=== PATIENT | female | born 1965 | race Caucasian/White ===

== ENCOUNTER → 2018-06-15 | Outpatient (CLI) | payer OTHER ==
--- NOTE | 2018-06-22 10:06 | MM ---
Reason for exam: screening (asymptomatic). Last mammogram was performed 2 years and 3 months ago. History: Family history of breast cancer in 3 maternal cousins. Benign stereotactic core biopsy of the left breast, February 2012. Took hormonal contraceptives for 8 years beginning at age 16. Took estrogen for 3 months. Took progesterone for 3 months. Physical Findings: A clinical breast exam by your physician is recommended on an annual basis and results should be correlated with mammographic findings. MG 3D Screening Mammo W/Cad Bilateral CC and MLO view(s) were taken. Prior study comparison: March 18, 2016, mammogram, performed at [facility]. April 24, 2015, bilateral MG screening mammo w CAD. The breast tissue is heterogeneously dense. This may lower the sensitivity of mammography. Finding: There are typically benign round, regional, linear calcifications in the upper inner quadrant of the right breast. Previous mammotome biopsy in the left breast. There is no discrete abnormality. ASSESSMENT: Benign, BI-RAD 2 RECOMMENDATION: Routine screening mammogram of both breasts in 1 year.
== END | disposition home or self-care (01) ==
LOC: RADMAMWWP 07:23
PROVIDERS: ATTEND Family Medicine
DX: Z12.31 Encounter for screening mammogram for malignant neoplasm of breast (principal)
CPT/HCPCS: 77063; 77067

== ENCOUNTER → 2018-10-11 | Outpatient (CLI) | payer OTHER ==
--- NOTE | 2018-10-11 14:18 | EST ---
EXERCISE STRESS AGE: 62 SEX: F HT: 4'11 WT: 140 PROTOCOL: Cardiolite Sebastian Study. STAGE: II DURATION OF EXERCISE: 8:26 HEART RATE REST: 68 BLOOD PRESSURE REST: 116/80 MAXIMUM HEART RATE ACHIEVED: 143 MAXIMUM BLOOD PRESSURE: 164/73 85% MPHR: 142 100% MPHR: 167 METS: 9.3 INDICATIONS: Chest pain. CLINICAL INFORMATION: Baseline rhythm is sinus mechanism, rate 68, normal axis and intervals, normal Echocardiogram. Baseline blood pressure 116/80 mmHg. Patient exercised on Sebastian protocol for 8 minutes 26 seconds reaching a peak rate of 143 beats per minute which is equal to 85% maximum predicted heart rate. Peak blood pressure 164/73 mmHg. Test was terminated due to fatigue. Therew was no chest pain. Electrocardiograph monitoring revealed no evidence of diagnostic ischemic ST deviation. Cardiolite was injected at peak exercise. CONCLUSION: 1. Average exercise tolerance with normal electrocardiographic response to exercise. 2. Nuclear images will be reported separately. MMODL / IJN: [id number] /
--- NOTE | 2018-10-11 16:44 | NM ---
EXAMINATION TYPE: NM stress cardiolite complete DATE OF EXAM: 10/11/2018 COMPARISON: NONE HISTORY: R07.9 TECHNIQUE: After the intravenous administration of 9.87 mCi Tc 99m Sestamibi - Rest images obtained 45 minutes post injection. The patient exercised using a WOODY protocol and 1 minute prior to peak exercise was injected with 25.0 mCi Tc 99m Sestamibi - Stress images obtained 10 minutes post injecti on. FINDINGS: SPECT imaging appears unremarkable. No fixed or reversible perfusion defects are evident. Gated wall motion has some mild dyskinesia of the cardiac apex at peak systole. The ejection fraction of 62 % is normal. IMPRESSION: 1. No stress-induced ischemic changes.
== END ==
LOC: RADNMMAIN 08:04
PROVIDERS: ATTEND Family Medicine
DX: R07.9 Chest pain, unspecified (principal)
CPT/HCPCS: 93017; 78452; A9500

== ENCOUNTER → 2019-07-19 | Outpatient (CLI) | payer BC ==
--- NOTE | 2019-07-19 11:16 | MM ---
Reason for exam: screening (asymptomatic). Last mammogram was performed 1 year and 1 month ago. History: Family history of breast cancer in 3 maternal cousins. Benign stereotactic core biopsy of the left breast, February 2012. Took hormonal contraceptives for 8 years beginning at age 16. Taking estrogen for 3 months. Taking progesterone for 3 months. Physical Findings: A clinical breast exam by your physician is recommended on an annual basis and results should be correlated with mammographic findings. MG 3D Screening Mammo W/Cad Bilateral CC and MLO view(s) were taken. Prior study comparison: June 15, 2018, bilateral MG 3d screening mammo w/cad. March 18, 2016, mammogram, performed at [facility]. The breast tissue is heterogeneously dense. This may lower the sensitivity of mammography. There are benign appearing regional round calcifications in the right breast. Previous mammotome biopsy in the left breast. There is no discrete abnormality. ASSESSMENT: Benign, BI-RAD 2 RECOMMENDATION: Routine screening mammogram of both breasts in 1 year.
== END | disposition home or self-care (01) ==
LOC: RADMAMWWP 07:39
PROVIDERS: ATTEND Obstetrics & Gynecology
DX: Z12.31 Encounter for screening mammogram for malignant neoplasm of breast (principal)
CPT/HCPCS: 77063; 77067

== ENCOUNTER → 2020-10-10 | Outpatient (CLI) | payer BC ==
--- NOTE | 2020-10-11 11:18 | MM ---
Reason for exam: screening (asymptomatic). Last mammogram was performed 1 year and 3 months ago. History: Patient is postmenopausal. Family history of breast cancer in 3 maternal cousins. Benign stereotactic core biopsy of the left breast, February 2012. Took hormonal contraceptives for 8 years beginning at age 16. Taking estrogen for 3 months. Taking progesterone for 3 months. Physical Findings: A clinical breast exam by your physician is recommended on an annual basis and results should be correlated with mammographic findings. MG 3D Screening Mammo W/Cad Bilateral CC and MLO view(s) were taken. Prior study comparison: July 19, 2019, bilateral MG 3d screening mammo w/cad. June 15, 2018, bilateral MG 3d screening mammo w/cad. The breast tissue is heterogeneously dense. This may lower the sensitivity of mammography. There are benign appearing round calcifications bilaterally. Previous mammotome biopsy in the left breast. There is no discrete abnormality. ASSESSMENT: Benign, BI-RAD 2 RECOMMENDATION: Routine screening mammogram of both breasts in 1 year.
== END | disposition home or self-care (01) ==
LOC: RADMAMWWP 10:44
PROVIDERS: ATTEND Family Medicine
DX: Z12.31 Encounter for screening mammogram for malignant neoplasm of breast (principal)
CPT/HCPCS: 77063; 77067

== ENCOUNTER → 2021-12-12 | Outpatient (CLI) | payer OTHER ==
--- NOTE | 2021-12-16 09:16 | MM ---
Reason for exam: screening (asymptomatic). Last mammogram was performed 1 year and 2 months ago. History: Patient is postmenopausal. Family history of breast cancer in 3 maternal cousins. Benign stereotactic core biopsy of the left breast, February 2012. Took hormonal contraceptives for 8 years beginning at age 16. Taking estrogen for 3 months. Taking progesterone for 3 months. Physical Findings: A clinical breast exam by your physician is recommended on an annual basis and results should be correlated with mammographic findings. MG 3D Screening Mammo W/Cad Bilateral CC and MLO view(s) were taken. Prior study comparison: October 10, 2020, bilateral MG 3d screening mammo w/cad. July 19, 2019, bilateral MG 3d screening mammo w/cad. The breast tissue is heterogeneously dense. This may lower the sensitivity of mammography. Previous mammotome biopsy in the left breast. No significant changes when compared with prior studies. ASSESSMENT: Benign, BI-RAD 2 RECOMMENDATION: Routine screening mammogram of both breasts in 1 year.
== END | disposition home or self-care (01) ==
LOC: RADMAMWWP 13:14
PROVIDERS: ATTEND Obstetrics & Gynecology
DX: Z12.31 Encounter for screening mammogram for malignant neoplasm of breast (principal); Z80.3 Family history of malignant neoplasm of breast; Z78.0 Asymptomatic menopausal state
CPT/HCPCS: 77063; 77067

== ENCOUNTER → 2022-08-18 | Outpatient (CLI) | payer OTHER ==
--- NOTE | 2022-08-19 10:41 | US ---
EXAMINATION TYPE: US thyroid st tissue head/neck DATE OF EXAM: 08/18/2022 COMPARISON: NONE CLINICAL HISTORY: 56-year-old female E03.9 HYPOTHYROIDISM. Hypothyroidism per order. Patient is curre ntly taking thyroid medication. TECHNIQUE: Multiple sonographic images of the thyroid gland are obtained. FINDINGS: GLAND SIZE: Right Lobe: 4.0 x 1.2 x 1.3 cm Overall Parenchyma: homogenous Left Lobe: 3.4 x 1.0 x 1.1 cm Overall Parenchyma: homogeneous Isthmus Thickness: 0.2 cm NODULES RIGHT: # of nodules measured on right: 1 1. 0.4 X 0.4 x 0.4 cm, mid medial, solid or almost completely solid, hypoechoic nodule, which is as wide as it is tall, with ill-defined margins, with echogenic focus. Prior size: no prior LEFT: # of nodules measured on left: 2 1. 0.3 X 0.3 x 0.3 cm, mid lateral, mixed cystic and solid nodule, which is as wide as it is tall, with smooth margins, with echogenic foci. Prior size: no prior 2. Area is questionably within the thyroid versus adjacent to?: 0.7 X 0.3 x 0.2 cm, mid lateral, c ystic or almost completely cystic, anechoic nodule, which is wider than tall, with lobulated or irreg ular margins, without echogenic foci. Suspect a small irregular cyst. Prior size: no prior ISTHMUS: # of nodules measured in the isthmus: 0 Bilateral neck scanned, no evidence of lymphadenopathy. IMPRESSION: A tiny 4 mm TR 4 nodule on the right and a tiny 3 mm TR 3 nodule on the left. Additional oblong 7 mm cyst on the left.
== END | disposition home or self-care (01) ==
LOC: RADUSWWP 16:03
PROVIDERS: ATTEND Family Medicine
DX: E04.2 Nontoxic multinodular goiter (principal); E03.9 Hypothyroidism, unspecified
CPT/HCPCS: 76536

== ENCOUNTER → 2023-04-29 | Outpatient (CLI) | payer BC ==
--- NOTE | 2023-04-29 09:11 | MM ---
Reason for Exam: Screening (asymptomatic). Last mammogram was performed 1 year(s) and 4 month(s) ago. Patient History: Menarche at age 12. First Full-Term at age 25. Left ovary removed at age 54. Right ovary removed at age 54. Hysterectomy at age 54. Postmenopausal. Patient has history of breast feeding. Currently using Estrogen, for 3 months. Currently using Progesterone, for 3 months. Hormonal Contraceptives for 8 years from age 16 until age 26. 02/2012, Benign Stereotactic Core Biopsy on the left side. Maternal cousin had breast cancer. Maternal cousin had breast cancer. Maternal cousin had breast cancer. Risk Values: Ailyn 5 year model risk: 1.8%. NCI Lifetime model risk: 10.0%. Prior Study Comparison: 07/19/2019 Bilateral Screening Mammogram, [facility]. 10/10/2020 Bilateral Screening Mammogram, [facility]. 12/12/2021 Bilateral Screening Mammogram, [facility]. Tissue Density: The breast tissue is heterogeneously dense. This may lower the sensitivity of mammography. Findings: Analyzed By CAD. There is no suspicious group of microcalcifications or new suspicious mass in either breast. Benign-appearing round calcifications within the left breast. Biopsy clip within the left breast. Overall Assessment: Benign, BI-RAD 2 Management: Screening Mammogram of both breasts in 1 year. A clinical breast exam by your physician is recommended on an annual basis and results should be correlated with mammographic findings. Note on Ailyn scores and lifetime risk: 1. A Ailyn score greater than 3% is considered moderate risk. If this is the case, consider specialist referral to assess eligibility for a risk reducing agent. If overall lifetime risk for the development of breast cancer is 20% or higher, the patient may qualify for future screening with alternating mammogram and breast MRI. Electronically signed and approved by: Mor Domínguez D.O.
== END | disposition home or self-care (01) ==
LOC: RADMAMWWP 06:45
PROVIDERS: ATTEND Obstetrics & Gynecology
DX: Z12.31 Encounter for screening mammogram for malignant neoplasm of breast (principal); Z78.0 Asymptomatic menopausal state; Z80.3 Family history of malignant neoplasm of breast
CPT/HCPCS: 77063; 77067

== ENCOUNTER → 2024-03-17 | Outpatient (CLI) | payer BC ==
--- NOTE | 2024-03-17 09:45 | CT ---
EXAMINATION TYPE: CT sinus wo con DATE OF EXAM: 03/17/2024 COMPARISON: None HISTORY: 58-year-old female J32.9, unspecified chronic sinusitis since September 2023. Cough, drainage . CT DLP: 635 mGycm Automated exposure control for dose reduction was used. TECHNIQUE: Noncontrast axial views of the paranasal sinuses were obtained. Coronal and sagittal recon structions performed. FINDINGS: PARANASAL SINUSES: Mild mucosal thickening along the floors of the maxillary sinuses. Additional mild mucosal thickening throughout the ethmoid air cells. The sphenoid sinuses are well pneumatized. Frontal sinuses are slightly hypoplastic. There is no air-fluid level. Reactive vanessa- osteogenesis is not seen. There is no destruction of the osseous quintana of the paranasal sinuses. THE NASAL CAVITY: The osteomeatal complexes are patent. The nasal septum shows slight leftward bowing. The imaged brain and orbits are normal in appearance. Mastoid air cells and middle ear cavities are well pneumatized. Reformatted images confirm above findings. IMPRESSION: Mild chronic maxillary and ethmoid sinus disease. Slight leftward nasal septal bowing.
== END | disposition home or self-care (01) ==
LOC: RADCTMAIN 06:53
PROVIDERS: ATTEND Otolaryngology
DX: J34.89 Other specified disorders of nose and nasal sinuses (principal); J01.81 Other acute recurrent sinusitis
CPT/HCPCS: 70486

== ENCOUNTER → 2024-03-18 | Outpatient (CLI) | payer BC ==
--- NOTE | 2024-03-18 14:40 | XR ---
EXAMINATION TYPE: XR chest 2V DATE OF EXAM: 03/18/2024 COMPARISON: None HISTORY: 58-year-old female cough, hoarseness, dyspnea. R05, R1310, R490 TECHNIQUE: Frontal and lateral views FINDINGS: The cardiomediastinal silhouette, aorta, and pulmonary vasculature are within normal limits. Lungs an d pleural spaces are clear. IMPRESSION: No acute cardiopulmonary process.
== END | disposition home or self-care (01) ==
LOC: LABWHC1 13:20
PROVIDERS: ATTEND Otolaryngology
DX: R13.10 Dysphagia, unspecified (principal); R49.0 Dysphonia; R05.9 Cough, unspecified; R06.00 Dyspnea, unspecified; R09.3 Abnormal sputum
CPT/HCPCS: 71046

== ENCOUNTER → 2024-03-31 | Outpatient (CLI) | payer BC ==
--- NOTE | 2024-04-04 11:26 | CT ---
EXAMINATION TYPE: CT neck chest w/wo con DATE OF EXAM: 03/31/2024 COMPARISON: None HISTORY: Chronic cough and hoarseness, over 6 months not responding to treatment, resistant base of t ounge thrush not responding, feels cough starts in her throat and progresses deeper. CT DLP: 1689.90 mGycm CONTRAST: Patient injected with 100 mL of Isovue 300. TECHNIQUE: Axial images at 3 mm thick sections. Reconstructed images in the coronal plane and sagitt al plane are reviewed. FINDINGS: Limited CT sections are obtained the lung apices. The lung apices appear clear. CT neck: The torus tubarius and fossa of Rosenmuller are normal. [employer] spaces are normal. Para nasal sinuses and mastoid air cells are clear. Parotid glands appear normal and symmetrical. Submandibular glands, are normal. Parapharyngeal spac es are normal. No suspicious adenopathy is evident. The hypopharynx appears within normal limits. Epiglottis appears normal. Base of the tongue appears u nremarkable as visualized. Vocal cord level appear symmetrical. Thyroid as visualized is normal. Osseous structures are normal. IMPRESSION: 1. No suspicious abnormality soft tissue neck. EXAMINATION TYPE: CT neck chest w/wo con DATE OF EXAM: 03/31/2024 COMPARISON: None HISTORY: Chronic cough and hoarseness, over 6 months not responding to treatment, resistant base of t ounge thrush not responding, feels cough starts in her throat and progresses deeper. CT DLP: 1689.90 mGycm, Automated exposure control for dose reduction was used. CONTRAST: Performed injected with 100 mL of Isovue 300. TECHNIQUE: Axial images were obtained at 5 mm thick sections. Reconstructed images are reviewed on [email or web address] in the coronal plane. FINDINGS: No suspicious lung nodules or focal infiltrates are present. No suspicious abnormality at the aortopulmonic window. No enlarged mediastinal or hilar adenopathy is evident. The ascending aorta diameter at the level o f the main pulmonary artery is 3.5 cm. The main pulmonary artery diameter at the bifurcation is 2.[address] sections are obtained through the upper abdomen. Abdomen is essentially unremarkable. IMPRESSION: 1. No acute abnormality CT chest.
== END | disposition home or self-care (01) ==
LOC: RADCTMAIN 06:50
PROVIDERS: ATTEND Otolaryngology
DX: R05.3 Chronic cough (principal); R09.89 Other specified symptoms and signs involving the circulatory and respiratory systems; R49.0 Dysphonia
CPT/HCPCS: 70492; 71270; Q9967

== ENCOUNTER → 2024-11-22 | Outpatient (CLI) | payer BC ==
--- NOTE | 2024-11-22 08:14 | MM ---
Reason for Exam: Screening (asymptomatic). Last mammogram was performed 1 year(s) and 7 month(s) ago. Patient History: Menarche at age 12. First Full-Term at age 25. Left ovary removed at age 54. Right ovary removed at age 54. Hysterectomy at age 54. Postmenopausal. Patient has history of breast feeding. Currently using Estrogen, for 3 months. Currently using Progesterone, for 3 months. Hormonal Contraceptives for 8 years from age 16 until age 26. 02/2012, Benign Stereotactic Core Biopsy on the left side. Maternal cousin had breast cancer, age 45. Maternal cousin had breast cancer, age 40. Maternal cousin had breast cancer, age 40. Risk Values: Ailyn 5 year model risk: 1.8%. NCI Lifetime model risk: 9.8%. Prior Study Comparison: 10/10/2020 Bilateral Screening Mammogram, [facility]. 12/12/2021 Bilateral Screening Mammogram, [facility]. 04/29/2023 Bilateral MG 3D screening mammo w/cad, [facility]. Tissue Density: The breasts are heterogeneously dense, which may obscure small masses. Findings: Analyzed By CAD. Microclip left breast from prior biopsy. Chronic nodularity lower inner quadrant right breast. There is no suspicious group of microcalcifications or new suspicious mass in either breast. Overall Assessment: Benign, BI-RAD 2 Management: Screening Mammogram of both breasts in 1 year. . Patient should continue monthly self-breast exams. A clinical breast exam by your physician is recommended on an annual basis. This exam should not preclude additional follow-up of suspicious palpable abnormalities. Note on Ailyn scores and lifetime risk: 1. A Ailyn score greater than 3% is considered moderate risk. If this is the case, consider specialist referral to assess eligibility for a risk reducing agent. 2. If overall lifetime risk for the development of breast cancer is 20% or higher, the patient may qualify for future screening with alternating mammogram and breast MRI. [facility], , 11/22/2024 8:11 AM. Electronically signed and approved by: Hawa Leo M.D. Radiologist
== END | disposition home or self-care (01) ==
LOC: RADMAMWWP 07:06
PROVIDERS: ATTEND Obstetrics & Gynecology
DX: Z12.31 Encounter for screening mammogram for malignant neoplasm of breast (principal); Z90.722 Acquired absence of ovaries, bilateral; Z78.0 Asymptomatic menopausal state; Z80.3 Family history of malignant neoplasm of breast; R92.333 Mammographic heterogeneous density, bilateral breasts; Z98.82 Breast implant status; N63.14 Unspecified lump in the right breast, lower inner quadrant
CPT/HCPCS: 77063; 77067

== ENCOUNTER 2025-01-13 06:45 | Day surgery (SDC) | payer BC ==
[2025-01-11 13:37] VITALS: BMI 29.9
[2025-01-13] MEDS: IV FLUID CONTINUATION 1,000 ML IV ONE (07:03)
[2025-01-13 07:09] VITALS: TEMP 98
[2025-01-13] MEDS: LACTATED RINGERS 1,000 ML IV SCH (07:15)
[2025-01-13] MEDS ORDERED: PROPOFOL 10 MG/ML 20 ML VIAL IV ONE (07:46)
[2025-01-13] MEDS ORDERED: LIDOCAINE 1% INJ 10MG/ML (20 ML MDV) ONE (07:46)
--- NOTE | 2025-01-13 08:12 | P.PCN ---
Date of Procedure: 01/13/25 Procedure(s) Performed: Brief history: Patient is a pleasant 59-year-old white female scheduled for an elective upper endoscopy as well as colonoscopy as a part of evaluation of GERD and screening for colon cancer Procedure performed: Esophagogastroduodenoscopy biopsy Colonoscopy with snare polypectomy and biopsy Preoperative diagnosis: GERD Screening colon cancer Anesthesia: [facility] Procedure: After informed consent was obtained from the patient was brought into the endoscopy unit and IV sedation was administered by anesthesia under continuous monitoring. Initially upper endoscopy was done. The Olympus GF 160 video endoscope was inserted inserted into the mouth and esophagus intubated without a ny difficulty and was gradually advanced into the stomach and duodenum and carefully examined. The bulb and second part of the duodenum appeared normal. The scope was then withdrawn into the stomach adequately insufflated with air and upon careful examination the antrum stripes and biopsies were done from this area. Multiple small gastric polyps noted in the gastric body which were biopsied. Rest of the body, cardia and fundus appeared normal. The scope was then withdrawn into the esophagus. The GE junction was located at 40 cm to the incisors. It appeared regular with no erythema erosions or ulcerations. Rest of the esophagus appeared normal. Patient tolerated the procedure well. At this time the patient continued to remain sedation. Initial digital rectal examination was normal. Olympus CF 160 video colonoscope was then inserted into the rectum and gradually advanced to the cecum without any difficulty. Careful examination was performed as the scope was gradually being withdrawn. The prep was excellent. The cecum, ascending colon, transverse colon, normal. The descending colon there was a 4 mm polyp that was removed by cold biopsy. Scattered left-sided diverticulosis seen. Rest of the descending colon, sigmoid colon and rectum appeared normal. In the proximal rectum there was a 1 cm polyp that was removed by snare polypectomy.. Retroflexion was performed in the rectum and no lesions were noted. Patient tolerated the procedure well. Impression: 1. Upper endoscopy revealed mild antral gastritis and multiple gastric polyps. 2. Colonoscopy revealed 4 mm descending colon polyp status post cold biopsy and a 1 cm proximal rectal polyp status post snare polypectomy. Scattered sigmoid diverticulosis Recommendations: Findings of this examination were discussed with the patient as well as her family. She was advised to follow-up with the biopsy results. The biopsy reveals adenoma she can have repeat colonoscopy in 3 years.
[2025-01-13] MEDS: ONDANSETRON 4 MG/2 ML VIAL IVP STA (08:39)
[2025-01-13 08:40] VITALS: BP 137/79; PULSE 64; RESP 14
== END 2025-01-13 09:15 | disposition home or self-care (01) ==
LOC: ORWHC2ENDO 06:45
PROVIDERS: ATTEND Internal Medicine Gastroenterology
DX: Z12.11 Encounter for screening for malignant neoplasm of colon (principal); K63.5 Polyp of colon; K62.1 Rectal polyp; K57.30 Diverticulosis of large intestine without perforation or abscess without bleeding; K21.9 Gastro-esophageal reflux disease without esophagitis; K31.7 Polyp of stomach and duodenum; K29.50 Unspecified chronic gastritis without bleeding; G47.33 Obstructive sleep apnea (adult) (pediatric); Z79.899 Other long term (current) drug therapy; Z98.890 Other specified postprocedural states; Z90.49 Acquired absence of other specified parts of digestive tract; Z88.8 Allergy status to other drugs, medicaments and biological substances; Z88.0 Allergy status to penicillin
CPT/HCPCS: 88305; 45380; 45385; 43239; J2405; J2003; J2704

== ENCOUNTER 2025-03-07 12:46 | Emergency (ER) | payer OTHER, BC ==
[2025-03-07 12:51] VITALS: RESP 18
--- NOTE | 2025-03-07 12:59 | ED ---
Recheck HPI - General Chief Complaint: Recheck/Abnormal Lab/Rx Stated Complaint: Medication withdrawal Time Seen by Provider: 03/07/25 12:52 Source: patient, RN notes reviewed Mode of arrival: ambulatory Limitations: no limitations - History of Present Illness Initial Comments: This is a 59-year-old female with history of anxiety, depression, laryngeal spa sms with presenting to emergency room with complaints of severe anxiety. Patient dates that over the past few days she has been experiencing worse anxiety into the she began to feel very anxious, muscle fatigue and shaking. Patient states that she has been prescribed gabapentin by her [facility] specialist to take 3 times a day to help with spasms. Patient has been engaged with speech-language pathology where symptoms have been greatly improving and she has been self decreasing her dosage of gabapentin. Patient states that she has not been taking gabapentin over the past 3 to 4 days however took a dose earlier today. She is concerned that she may be having withdrawal from her medications. She denies suicidal, homicidal ideation, auditory visual hallucinations. Denies drug use. - Related Data Home Medications Medication Instructions Recorded Confirmed Gabapentin [Neurontin] 100 mg PO TID 01/11/25 01/13/25 Levothyroxine Sodium [Tirosint] 88 mcg PO DAILY 01/11/25 01/13/25 Pantoprazole [Protonix] 40 mg PO BID 01/11/25 01/13/25 buPROPion SR [Wellbutrin SR] 450 mg PO DAILY 01/11/25 01/13/25 Allergies Allergy/AdvReac Type Severity Reaction Status Date / Time Penicillins Allergy Rash/Hives Verified 03/07/25 12:51 venom-honey bee Allergy Anaphylaxis Verified 03/07/25 12:51 [bee venom (honey bee)] carisoprodol [From Soma] AdvReac Swelling Verified 03/07/25 12:51 Review of Systems ROS Statement: Those systems with pertinent positive or pertinent negative responses have been documented in the HPI. ROS Other: All systems not noted in ROS Statement are negative. Past Medical History Past Medical History: GERD/Reflux, Sleep Apnea/CPAP/BIPAP, Thyroid Disorder Additional Past Medical History / Comment(s): migraines, uses CPAP, recent bout of diverticulitis, has occasional constipation, bloating, IBS, IRRITABLE LARYNX SYNDROME, History of Any Multi-Drug Resistant Organisms: None Reported Past Surgical History: Section, Cholecystectomy, Hysterectomy, Orthopedic Surgery, Tubal Ligation, Uterine Ablation Additional Past Surgical History / Comment(s): RT shoulder surg. COLONOSCOPY/EGD, Past Anesthesia/Blood Transfusion Reactions: Previous Problems w/ Anesthesia, Motion Sickness, Postoperative Nausea & Vomiting (PONV) Additional Past Anesthesia/Blood Transfusion Reaction / Comment(s): some kind of reaction to anesthesia after ablation that caused severe all over muscle weakness that started later the day of surgery, also tends to be combative when waking up Past Psychological History: Panic Disorder Smoking Status: Never smoker Past Alcohol Use History: None Reported Past Drug Use History: None Reported - Past Family History Father Family Medical History: Cancer General Exam Limitations: no limitations General appearance: alert, in no apparent distress Eye exam: Present: normal appearance, PERRL, EOMI. Absent: scleral icterus, conjunctival injection, periorbital swelling Neck exam: Present: normal inspection. Absent: tenderness, meningismus, lymphadenopathy Respiratory exam: Present: normal lung sounds bilaterally. Absent: respiratory distress, wheezes, rales, rhonchi, stridor Cardiovascular Exam: Present: regular rate, normal rhythm, normal heart sounds. Absent: systolic murmur, diastolic murmur, rubs, gallop, clicks GI/Abdominal exam: Present: soft, normal bowel sounds. Absent: distended, tenderness, guarding, rebound, rigid Psychiatric exam: Present: depressed, anxious. Absent: normal affect, agitated, manic, homicidal ideation Course Vital Signs 03/07/25 03/07/25 03/07/25 12:48 13:00 14:16 Temperature 99.1 F 98.2 F Pulse Rate 101 H 87 Respiratory 18 18 Rate Blood Pressure 182/109 135/95 O2 Sat by Pulse 98 100 Oximetry Medical Decision Making - Medical Decision Making Was pt. sent in by a medical professional or institution (, PA, AUTOMOTIVE MACHINIST, urgent care, hospital, or intermediate...) When possible be specific @ -No Did you speak to anyone other than the patient for history (EMS, parent, family, police, friend...)? What history was obtained from this source @ -No Did you review nursing and triage notes (agree or disagree)? Why? @ -I reviewed and agree with nursing and triage notes Were old charts reviewed (outside hosp., previous admission, EMS record, old EKG, old radiological studies, urgent care reports/EKG's, intermediate records)? Report findings @ -No old charts were reviewed Differential Diagnosis (chest pain, altered mental status, abdominal pain women, abdominal pain men, vaginal bleeding, weakness, fever, dyspnea, syncope, headache, dizziness, GI bleed, back pain, seizure, CVA, palpatations, mental health, musculoskeletal)? @ -Differential Mental Health Depression, anxiety, bipolar, psychosis, schizophrenia, borderline personality, situational depression, adjustment disorder, behavioral disorder, brain tumor, malingering, substance abuse, encephalopathy, medication reaction, dementia, hypothyroidism, degenerative neurologic disorder, lupus.... This is not meant to be all-inclusive list EKG interpreted by me (3pts min.). @ -None X-rays interpreted by me (1pt min.). @ -None done CT interpreted by me (1pt min.). @ -None done U/S interpreted by me (1pt. min.). @ -None done What testing was considered but not performed or refused? (CT, X-rays, U/S, labs)? Why? @ -None What meds were considered but not given or refused? Why? @ -None Did you discuss the management of the patient with other professionals (professionals i.e. , PA, AUTOMOTIVE MACHINIST, lab, RT, psych nurse, social science research assistant, take away man, teacher, student officer, case management assistant)? Give summary @ -No Was smoking cessation discussed for >3mins.? @ -No Was critical care preformed (if so, how long)? @ -No Were there social determinants of health that impacted care today? How? (Homelessness, low income, unemployed, alcoholism, drug addiction, transportation, low edu. Level, literacy, decrease access to med. care, senior care, rehab)? @ -No Was there de-escalation of care discussed even if they declined (Discuss DNR or withdrawal of care, Hospice)? DNR status @ -No What co-morbidities impacted this encounter? (DM, HTN, Smoking, COPD, CAD, Cancer, CVA, ARF, Chemo, Hep., AIDS, mental health diagnosis, sleep apnea, morbid obesity)? @ -None Was patient admitted / discharged? Hospital course, mention meds given and route, prescriptions, significant lab abnormalities, going to OR and other pertinent info. @ -discharged. 59 year old female presents emergency department with anxiety. Overall patient is tearful and anxious shaking her legs a and crying in regard to her conditions. She is denying suicidal homicidal ideations. She is provided with dose of Ativan. Reevaluation by states that she is feeling well and symptoms have resolved. Patient did touch base with the [facility] psychiatrist earlier today and states that she has appropriate follow-up. Patient states that she feels comfortable for discharge. Recommend she follows up with [facility] specialist and continue taking prednisone prescribed and use tapering protocol for discontinuation of use of gabbapentin. Undiagnosed new problem with uncertain prognosis? @ -No Drug Therapy requiring intensive monitoring for toxicity (Heparin, Nitro, Insulin, Cardizem)? @ -No Were any procedures done? @ -No Diagnosis/symptom? @ -Acute anxiety Acute, or Chronic, or Acute on Chronic? @ -acute Uncomplicated (without systemic symptoms) or Complicated (systemic symptoms)? @ -Uncomplicated Side effects of treatment? @ -No Exacerbation, Progression, or Severe Exacerbation? @ -No Poses a threat to life or bodily function? How? (Chest pain, USA, CT, pneumonia, PE, COPD, DKA, ARF, appy, cholecystitis, CVA, Diverticulitis, Homicidal, Suicidal, threat to staff... and all critical care pts) @ -No Disposition Clinical Impression: Anxiety Disposition: HOME SELF-CARE Condition: Good Instructions (If sedation given, give patient instructions): Generalized Anxiety Disorder (ED) Additional Instructions: Please return to the Emergency Department if symptoms worsen or any other con cerns. Is patient prescribed a controlled substance at d/c from ED?: No Referrals: Jonathan Grigsby MD [Primary Care Provider] - 1-2 days Time of Disposition: 13:53
[2025-03-07 13:03] VITALS: TEMP 98.2
[2025-03-07] MEDS: LORazepam 2 MG/ML INJ IM STA (13:07)
[2025-03-07 14:18] VITALS: BP 135/95; PULSE 87
== END 2025-03-07 14:18 | disposition home or self-care (01) ==
LOC: EC 12:46
DX: F41.9 Anxiety disorder, unspecified (principal); Z88.0 Allergy status to penicillin; Z88.8 Allergy status to other drugs, medicaments and biological substances; Z91.030 Bee allergy status
CPT/HCPCS: 99283; 96372; J2060